=== PATIENT | male | born 1950 | race Caucasian/White ===

== ENCOUNTER 2017-06-02 05:58 | Day surgery (SDC) | payer MEDICARE ==
[2017-06-01 09:25] VITALS: BP 146/94
[2017-06-01 09:58] LABS: ALANINE AMINOTRANSFERASE 24 U/L (12-78); ALBUMIN 3.9 g/dL (3.4-5.0); ANION GAP 9 mmol/L (5-15); CALCIUM 9.5 mg/dL (8.5-10.1); CHLORIDE 107 mmol/L (98-107); CREATININE 1.05 mg/dL (0.7-1.3)
[2017-06-01 10:00] LABS: ALKALINE PHOSPHATASE 77 U/L (45-117); BILIRUBIN,TOTAL 0.4 mg/dL (0.2-1.0); TOTAL PROTEIN 7.6 g/dL (6.4-8.2)
[~2017-06-02] VITALS: Ht 177.8 cm; Wt 101.3 kg
[~2017-06-02 05:58] MED LIST: ASPI-621 PO; CHOL200024 PO; GLUC15006 PO; INDOMETHACIN; LISI-170 PO; LOVA20TA2 PO; OMEP40CA6 PO
[2017-06-02] MEDS ORDERED: LACTATED RINGERS 1,000 ML IV SCH (06:48)
[2017-06-02] MEDS ORDERED: BUPIVACAINE/PF 0.5% ONE (07:00)
[2017-06-02] MEDS ORDERED: MIDAZOLAM 1 MG/ML, 2ML ONE (07:48)
[2017-06-02] MEDS ORDERED: PROPOFOL 10 MG/ML, 20ML ONE (07:49)
[2017-06-02] MEDS ORDERED: FENTANYL PF 250 MCG/5ML ONE (07:49)
[2017-06-02] MEDS ORDERED: CEFAZOLIN 1,000 MG ONE ×2 (07:52)
[2017-06-02] MEDS ORDERED: SODIUM CHLORIDE 0.9% PF 10ML ONE (07:52)
[2017-06-02] MEDS ORDERED: ACETAMINOPHEN 325 MG TABLET PO PRN (08:30)
[2017-06-02] MEDS ORDERED: HYDROmorphone 1 MG/ML, 1ML IV PRN (08:30)
[2017-06-02] MEDS ORDERED: PROMETHAZINE 12.5 MG SUPP PR PRN (08:30)
[2017-06-02] MEDS ORDERED: PROMETHAZINE 25 MG/ML, 1ML IV PRN (08:30)
[2017-06-02] MEDS ORDERED: morphine SULFATE 10 MG/ML, 1ML IV PRN (08:30)
[2017-06-02] MEDS ORDERED: ONDANSETRON 2MG/ML, 2ML IVPush PRN (08:30)
[2017-06-02] MEDS ORDERED: OXYcodone 5 MG/5 ML ORAL.SOL UDC PO PRN (08:30)
[2017-06-02] MEDS ORDERED: FENTANYL PF 100 MCG/2ML IV PRN (08:30)
[2017-06-02] MEDS ORDERED: hydrALAzine 20 MG/ML, 1ML IV PRN (08:30)
[2017-06-02] MEDS ORDERED: MEPERIDINE/PF 25MG/0.5ML IVPush PRN (08:30)
[2017-06-02] MEDS ORDERED: LABETALOL 5MG/ML, 20ML IV PRN (08:30)
[2017-06-02] MEDS ORDERED: ACETAMINOPHEN 650 MG/20.3 ML UDC ONE (09:21)
[2017-06-02] MEDS ORDERED: OXYcodone 5 MG/5 ML ORAL.SOL UDC ONE (09:22)
== END 2017-06-02 10:45 ==
LOC: OUT 05:58
PROVIDERS: ATTEND Orthopaedic Surgery Orthopaedic Surgery of the Spine
DX: G56.01 Carpal tunnel syndrome, right upper limb (principal); I10 Essential (primary) hypertension; E78.5 Hyperlipidemia, unspecified; Z72.89 Other problems related to lifestyle
CPT/HCPCS: 36415; 64721; 80053; 93005; J0690; J2250; J2704; J3010; J3490; J7120